=== PATIENT | male | born 1995 | race Caucasian/White ===

== ENCOUNTER 2018-11-19 07:20 | Emergency (ER) | payer MEDICAID, OTHER ==
[~2018-11-19 07:20] MED LIST: AZIT-1 PO; CLIN300C99 PO; HYDR-653 PO; KET10 PO; LOR5/325 PO; NEOM10DR44 OT
--- NOTE | 2018-11-19 07:39 | ER Report ---
History and Physical Time Seen By MD: 07:35 Hx. of Stated Complaint: STATES HE HAS HAD INTERMITTENT NUMBNESS TO ENTIRE LEFT ARM FOR THE PAST MONTH. HAS BEEN MORE FATIGUED OVER THE LAST WEEK (GARFIELD IQBAL DO) HPI/ROS CHIEF COMPLAINT: L arm weakness HISTORY OF PRESENT ILLNESS: PT here for evaluation of left arm numbness. Pt states that it started about a month ago. Pt states he woke up one morning and left arm felt numb "i thought i slept on it". States that numbness has been intermittent.Pt denies any trauma or neck pain. Pt states that today is the first day that it has not gone away. PT also has noticed that his arm has been progressively getting weaker. PT states that when he goes to grasp something "like a mug" I realize I am not holding it as well as the right hand. No leg weakness. no headache. no chest pain or sob. Pt never had this happen before. REVIEW OF SYSTEMS: Constitutional: No fever, no chills. Eyes: No discharge. ENT: No sore throat. Cardiovascular: No chest pain, no palpitations. Respiratory: No cough, no shortness of breath. Gastrointestinal: No abdominal pain, no vomiting. Genitourinary: No hematuria. Musculoskeletal: No back pain. No neck pain, + left arm numbness and weakness Skin: No rashes. Neurological: No headache, Left arm numbness (GARFIELD IQBAL DO) Allergies: Coded Allergies: Penicillins (Unverified Allergy, Unknown, 11/19/18) amoxicillin (Verified Allergy, Unknown, 11/19/18) codeine (Unverified Allergy, Unknown, 11/19/18) morphine (Verified Allergy, Unknown, 11/19/18) Home Meds Active Scripts Methocarbamol (ROBAXIN-750) 750 Mg Tablet, 1500 MG PO QID for Muscle Relaxant, #30 TAB 0 Refills Prov:VINNY MENDEZ MD 11/19/18 Oxycodone/Acetaminophen (OXYCODONE/ACETAMINOPHEN 5MG/325 MG) 5 Mg/325 Mg Tab, 1 TAB PO Q4H, #12 TAB 0 Refills Prov:VINNY MENDEZ MD 11/19/18 Methylprednisolone (METHYLPREDNISOLONE) 4 Mg Tab.ds.pk, 4 MG PO DIRECTED, #21 TAB . Prov:VINNY MENDEZ MD 11/19/18 Discontinued Scripts Azithromycin (ZITHROMAX) 250 Mg Tablet, 0 PO QDAY, #6 TAB TAKE 2 TABLETS ON DAY 1 AND 1 TABLET ON DAYS 2-5 Prov:MAY FERNANDEZ DO 01/26/14 Hydrocodone Bit/Acetaminophen (NORCO 5-325 TABLET) 1 Each Tablet, 1 EACH PO Q4H PRN for PAIN, #12 0 Refills Prov:MAY FERNANDEZ DO 01/26/14 Neomy Sulf/Colist Sul/Hc/Thonz (CORTISPORIN-TC EAR SUSP) 10 Ml Drops.susp, 10 ML OT TID for ear infection, #10 0 Refills Prov:MAY FERNANDEZ DO 01/26/14 Clindamycin Hcl (CLINDAMYCIN HCL) 300 Mg Capsule, 300 MG PO Q6H, #20 CAPSULE TAKE 1 CAPSULE EVERY SIX HOURS Prov:SHERIDAN OCHOA DO 01/13/14 Hydrocodone Bit/Acetaminophen (NORCO 5-325 TABLET) 1 Each Tablet, 1 EACH PO Q6- 8H, #10 Prov:SHERIDAN OCHOA DO 01/13/14 Past Medical/Surgical History Pmhx: anxiety Pshx: appy (GARFIELD IQBAL DO) Reviewed Nurses Notes: Yes (GARFIELD IQBAL DO) Hx Smoking: No Smoking Status: Never Smoker Hx Substance Use Disorder: No Hx Alcohol Use: Yes (GARFIELD IQBAL DO) Constitutional Vital Sign - Last 24 Hours 11/19/18 11/19/18 11/19/18 11/19/18 07:30 07:30 08:00 08:30 Temp 97.7 Pulse 75 88 58 56 Resp 20 9 21 13 B/P (MAP) 129/82 134/87 (103) 117/72 (87) 123/71 (88) Pulse Ox 95 97 93 96 O2 Delivery Room Air 11/19/18 11/19/18 09:00 11:00 Pulse 62 60 Resp 15 B/P (MAP) 124/67 (86) 115/74 (88) Pulse Ox 96 93 (VINNY MENDEZ MD) Physical Exam General Appearance: The patient is alert, has no immediate need for airway protection and no signs of toxicity. Eyes: Pupils equal and round no pallor or injection, EOMI ENT: no pharyngeal erythema or exudates, Mucous membranes are moist, TM are nl b/l Respiratory: There are no retractions, lungs are clear to auscultation. Cardiovascular: Regular rate and rhythm. pulses are equal and symmetrical Gastrointestinal: Abdomen is soft and non tender, no masses, bowel sounds normal, no guarding, no rigidity or rebound Neurological: Cranial nerves II-XII grossly intact, no sensory, Lower extremiti ty muscle strength 5/5, right upper extremity strength 5/5, left upper extremity 4/5 in tricep and bicep as well as grasp, no pronator drift, no dysmetria Skin: Warm and dry, no rashes. Musculoskeletal: Neck is supple non tender, no vertebral tenderness, Extremities are nontender, nonswollen and have full range of motion. DIFFERENTIAL DIAGNOSIS: After history and physical exam differential diagnosis was considered for weakness secondary to cervical radiculopathy (herniated disc, spinal stenosis), cva, electrolyte abnl (LAURORA,GARFIELD V DO) Medical Decision Making Data Points Result Diagram: 11/19/18 0736 11/19/18 0736 Laboratory Hematology Test 11/19/18 07:36 White Blood Count 6.2 k/uL (4.5-11.0) Red Blood Count 5.41 M/uL (4.00-5.60) Hemoglobin 15.4 g/dL (14.0-18.0) Hematocrit 44.5 % (42.0-52.0) Mean Corpuscular Volume 82.3 fL (80.0-96.0) Mean Corpuscular Hemoglobin 28.6 pg (26.0-33.0) Mean Corpuscular Hemoglobin Concent 34.7 g/dL (32.0-36.0) Red Cell Distribution Width 13.2 % (11.5-14.5) Platelet Count 250 K/uL (150-450) Mean Platelet Volume 9.8 fL (7.2-11.1) Neutrophils (%) (Auto) 46.9 % (39.4-72.5) Lymphocytes (%) (Auto) 44.3 % (17.6-49.6) Monocytes (%) (Auto) 6.8 % (4.1-12.4) Eosinophils (%) (Auto) 1.3 % (0.4-6.7) Basophils (%) (Auto) 0.7 % (0.3-1.4) Nucleated RBC Relative Count (auto) 0.0 /100WBC Neutrophils # (Auto) 2.9 K/uL (2.0-7.4) Lymphocytes # (Auto) 2.7 K/uL (1.3-3.6) Monocytes # (Auto) 0.4 K/uL (0.3-1.0) Eosinophils # (Auto) 0.1 K/uL (0.0-0.5) Basophils # (Auto) 0.0 K/uL (0.0-0.1) Nucleated RBC Absolute Count (auto) 0.00 K/uL Chemistry Test 11/19/18 07:36 Sodium Level 137 mmol/L (137-145) Potassium Level 4.1 mmol/L (3.5-5.0) Chloride Level 106 mmol/L (98-107) Carbon Dioxide Level 22 mmol/L (22-30) Blood Urea Nitrogen 15 mg/dl (9-21) Creatinine 1.00 mg/dl (0.66-1.25) Glomerular Filtration Rate Calc > 60.0 Random Glucose 104 mg/dl (75-110) Calcium Level 9.0 mg/dl (8.4-10.2) Total Bilirubin 1.7 mg/dl (0.2-1.3) Aspartate Amino Transf (AST/SGOT) 38 U/L (0-35) Alanine Aminotransferase (ALT/SGPT) 57 U/L (0-56) Alkaline Phosphatase 70 U/L (0-126) Troponin I < 0.012 ng/ml Total Protein 7.3 g/dl (6.3-8.2) Albumin 4.2 g/dl (3.5-5.0) Coagulation Test 11/19/18 07:36 Prothrombin Time 13.0 seconds (12.0-14.4) Prothromb Time International Ratio 0.98 Activated Partial Thromboplast Time 33 seconds (23-35) (VINNY MENDEZ MD) EKG/Imaging EKG Interpretation Nsr @ 66 with sinus arrhythmia (GARFIELD IQBAL DO) Imaging FACILITY: [facility] [place] PATIENT NAME: Vipul Arboleda : 1995 MR: [id number] V: [id number] EXAM DATE: ORDERING PHYSICIAN: GARFIELD IQBAL TECHNOLOGIST: Location: [facility] Patient: Vipul Arboleda : 1995 Visit/Account:[id number] Date of Sevice: 11/19/2018 EXAMINATION: CT Cervical spine without intravenous contrast HISTORY: Left arm numbness. COMPARISON: None available. TECHNIQUE: Noncontrast axial CT of the cervical spine with sagittal and coronal reformats. One of the following dose optimization techniques was utilized in the performance of this exam: Automated exposure control; adjustment of the mA and/or kV according to the patient's size; or use of an iterative reconstruction technique. Specific details can be referenced in the facility's radiology CT exam operational policy. FINDINGS: Alignment: Straightening and slight reversal of the normal lordosis. Minimal convex rightward curvature. Cranio-cervical junction: Negative. Vertebral bodies: Negative. Posterior elements: Negative. Hardware: None. Disc Spaces: Negative. Soft tissues: Negative. Visualized upper chest: Negative. IMPRESSION: 1. No acute osseous abnormality of the cervical spine. 2. Straightening and slight reversal of the normal lordosis and minimal convex rightward curvature may be positional or related to muscle spasm. No significant degenerative changes. Report Dictated By: Sidney Schaefer MD at 11/19/2018 8:18 AM Report E-Signed By: Sidney Schaefer MD at 11/19/2018 8:22 AM WSN:[email or web address] FACILITY: [facility] [place] PATIENT NAME: Vipul Arboleda : 1995 MR: [id number] V: [id number] EXAM DATE: ORDERING PHYSICIAN: GARFIELD IQBAL TECHNOLOGIST: Location: [facility] Patient: Vipul Arboleda : 1995 Visit/Account:[id number] Date of Sevice: 11/19/2018 CT BRAIN NO CONTRAST EXAMINATION: CT head/brain without contrast HISTORY: Left arm numbness. TECHNIQUE: Contiguous axial images were obtained from the skull base to the vertex without intravenous contrast. One of the following dose optimization techniques was utilized in the performance of this exam: Automated exposure control; adjustment of the mA and/or kV according to the patient's size; or use of an iterative reconstruction technique. Specific details can be referenced in the facility's radiology CT exam operational policy. COMPARISON STUDIES: None FINDINGS: Ventricles/sulci/fissures: Midline in position and normal in configuration. Masses/hemorrhage/midline shift: Negative White matter: Well-maintained. No white matter edema. Da Silva-white differentiation: . No abnormal hypo or hyperdense lesions seen within the cortical mantle Extra-axial spaces: No subdural or epidural fluid collections. No subarachnoid blood Dural venous sinuses/arterial structures: Negative Skull base/calvarium: No calvarial or skull base abnormalities. Visualized mastoid air cells/paranasal sinuses: Mastoid air cells are well-maintained well-aerated. No sinus disease. IMPRESSION: Negative CT scan of the head. Report Dictated By: Calixto Owen MD at 11/19/2018 8:16 AM Report E-Signed By: Calixto Owen MD at 11/19/2018 8:18 AM WSN:[id number] FACILITY: [facility] [place] PATIENT NAME: Vipul Arboleda : 1995 MR: [id number] V: [id number] EXAM DATE: ORDERING PHYSICIAN: VINNY MENDEZ TECHNOLOGIST: Location: [facility] Patient: Vipul Arboleda : 1995 Visit/Account:[id number] Date of Sevice: 11/19/2018 MR SPINE CERVICAL W/O CON COMPARISON: None Additional pertinent history: Numbness extending into the left arm. Technique: Multiplanar multisequence cervical spine MRI was performed without gadolinium enhancement. FINDINGS: Vertebral body height and alignment: Negative Vertebral marrow signal: Negative Vertebral bodies: Negative Cervical spinal cord signal, craniocervical junction and visualized posterior fossa: Negative Surrounding soft tissues: Nonpathologically enlarged lymph nodes within the neck. These are presumably reactive. Inspection of the disc spaces reveal the following: C1-C2: Negative C2-C3: Negative C3-C4: Negative C4-C5: Negative C5-C6: Negative C6-C7: Negative C7-T1: Negative Impression: Normal cervical spine MRI without contrast. Report Dictated By: Benjamin Bae MD at 11/19/2018 11:11 AM Report E-Signed By: Benjamin Bae MD at 11/19/2018 11:13 AM WSN:[id number] (VINNY MENDEZ MD) ED Course/Re-evaluation ED Course check labs and imaging of head and c-spine 11/19/2018 8:20:19 am signed out to Dr. Mendez (GARFIELD IQBAL DO) ED Course 11/19/2018 8:43:37 am patient with persistent left upper extremity weakness that seems both dermatomal and distribution C4-C6. CT scan of brain unremarkabl e, CT C-spine; no significant arthritis noted however straightening of loss of the cervical lordosis noted plan at this time will be MRI of the C-spine Decision to Disposition Date: Nov 19, 2018 Decision to Disposition Time: 11:30 Turned Over accepted care at 0836 (VINNY MENDEZ MD) Depart Departure Latest Vital Signs Vital Signs Date Time Temp Pulse Resp B/P (MAP) Pulse Ox O2 Delivery O2 Flow Rate FiO2 11/19/18 11:00 60 115/74 (88) 93 11/19/18 09:00 15 11/19/18 07:30 97.7 Room Air (VINNY MENDEZ MD) Impression: Primary Impression: Muscle pain Additional Impression: Left arm weakness Condition: Condition Unchanged Disposition: HOME OR SELF-CARE Referrals: GRAY BERNARDO MD call to schedule the next available appointment for evaluation of your upper extremity weakness New Scripts Methocarbamol (ROBAXIN-750) 750 Mg Tablet 1500 MG PO QID for Muscle Relaxant, #30 TAB 0 Refills Prov: VINNY MENDEZ MD 11/19/18 Oxycodone/Acetaminophen (OXYCODONE/ACETAMINOPHEN 5MG/325 MG) 5 Mg/325 Mg Tab 1 TAB PO Q4H, #12 TAB 0 Refills Prov: VINNY MENDEZ MD 11/19/18 Methylprednisolone (METHYLPREDNISOLONE) 4 Mg Tab.ds.pk 4 MG PO DIRECTED, #21 TAB . Prov: VINNY MENDEZ MD 11/19/18 Departure Forms: ER Transition Record, Medications Reconciliation, Off Work/School Form, School or Work Release?: Work Number of days to be released: 2 Patient Portal Information Patient Instructions: Arm Pain (ED) Problem Qualifiers GARFIELD IQBAL DO Nov 19, 2018 07:39 VINNY MENDEZ MD Nov 19, 2018 08:47
[2018-11-19 07:58] LABS: PLATELET COUNT, AUTOMATED 250 K/uL (150-450)
[2018-11-19 08:09] LABS: INR 0.98
--- NOTE | 2018-11-19 08:26 | RADIOLOGY IMAGING REPORT ---
FACILITY: [facility] PATIENT NAME: Vipul Arboleda : 1995 MR: [id number] V: [id number] EXAM DATE: ORDERING PHYSICIAN: GARFIELD IQBAL TECHNOLOGIST: Location: [facility] [place] Patient: Vipul Arboleda : 1995 Visit/Account:[id number] Date of Sevice: 11/19/2018 CT BRAIN NO CONTRAST EXAMINATION: CT head/brain without contrast HISTORY: Left arm numbness. TECHNIQUE: Contiguous axial images were obtained from the skull base to the vertex without intravenou s contrast. One of the following dose optimization techniques was utilized in the performance of this exam: Autom ated exposure control; adjustment of the mA and/or kV according to the patient's size; or use of an i terative reconstruction technique. Specific details can be referenced in the facility's radiology C T exam operational policy. COMPARISON STUDIES: None FINDINGS: Ventricles/sulci/fissures: Midline in position and normal in configuration. Masses/hemorrhage/midline shift: Negative White matter: Well-maintained. No white matter edema. Da Silva-white differentiation: . No abnormal hypo or hyperdense lesions seen within the cortical mantle Extra-axial spaces: No subdural or epidural fluid collections. No subarachnoid blood Dural venous sinuses/arterial structures: Negative Skull base/calvarium: No calvarial or skull base abnormalities. Visualized mastoid air cells/paranasal sinuses: Mastoid air cells are well-maintained well-aerated. N o sinus disease. IMPRESSION: Negative CT scan of the head. Report Dictated By: Calixto Owen MD at 11/19/2018 8:16 AM Report E-Signed By: Calixto Owen MD at 11/19/2018 8:18 AM WSN:[id number]
--- NOTE | 2018-11-19 08:27 | EKG ---
FACILITY: [facility] PATIENT NAME: JOSÉ MANUEL STEPHENSON : [id number] MR: [id number] V: [id number] EXAM DATE: ORDERING PHYSICIAN: GARFIELD IQBAL TECHNOLOGIST: FELIX Test Reason : ARM NUMBNESS, SOB Blood Pressure : / mmHG Vent. Rate : 066 BPM Atrial Rate : 066 BPM P-R Int : 136 ms QRS Dur : 094 ms QT Int : 390 ms P-R-T Axes : 026 011 017 degrees QTc Int : 408 ms Normal sinus rhythm with sinus arrhythmia Normal ECG Confirmed by RUSTY QUILES ([id number]) on 11/19/2018 9:59:58 AM Referred By: FARIDA Confirmed By:RUSTY QUILES
--- NOTE | 2018-11-19 08:28 | RADIOLOGY IMAGING REPORT ---
[place]ACILITY: [facility] [place] PATIENT NAME: Vipul Arboleda : 1995 MR: [id number] V: [id number] EXAM DATE: ORDERING PHYSICIAN: GARFIELD IQBAL TECHNOLOGIST: Location: [facility] [place] Patient: Vipul Arboleda : 1995 Visit/Account:[id number] Date of Sevice: 11/19/2018 EXAMINATION: CT Cervical spine without intravenous contrast HISTORY: Left arm numbness. COMPARISON: None available. TECHNIQUE: Noncontrast axial CT of the cervical spine with sagittal and coronal reformats. One of the following dose optimization techniques was utilized in the performance of this exam: Autom ated exposure control; adjustment of the mA and/or kV according to the patient's size; or use of an i terative reconstruction technique. Specific details can be referenced in the facility's radiology C T exam operational policy. FINDINGS: Alignment: Straightening and slight reversal of the normal lordosis. Minimal convex rightward curvatu re. Cranio-cervical junction: Negative. Vertebral bodies: Negative. Posterior elements: Negative. Hardware: None. Disc Spaces: Negative. Soft tissues: Negative. Visualized upper chest: Negative. IMPRESSION: 1. No acute osseous abnormality of the cervical spine. 2. Straightening and slight reversal of the normal lordosis and minimal convex rightward curvature ma y be positional or related to muscle spasm. No significant degenerative changes. Report Dictated By: Sidney Schaefer MD at 11/19/2018 8:18 AM Report E-Signed By: Sidney Schaefer MD at 11/19/2018 8:22 AM WSN:[email or web address]
[2018-11-19 11:00] VITALS: BP 115/74
--- NOTE | 2018-11-19 11:22 | RADIOLOGY IMAGING REPORT ---
FACILITY: [facility] PATIENT NAME: Vipul Arboleda : 1995 MR: [id number] V: [id number] EXAM DATE: ORDERING PHYSICIAN: VINNY INTERIANO TECHNOLOGIST: Location: [facility] [place] Patient: Vipul Arboleda : 1995 Visit/Account:[id number] Date of Sevice: 11/19/2018 MR SPINE CERVICAL W/O CON COMPARISON: None Additional pertinent history: Numbness extending into the left arm. Technique: Multiplanar multisequence cervical spine MRI was performed without gadolinium enhancement. FINDINGS: Vertebral body height and alignment: Negative Vertebral marrow signal: Negative Vertebral bodies: Negative Cervical spinal cord signal, craniocervical junction and visualized posterior fossa: Negative Surrounding soft tissues: Nonpathologically enlarged lymph nodes within the neck. These are presumab ly reactive. Inspection of the disc spaces reveal the following: C1-C2: Negative C2-C3: Negative C3-C4: Negative C4-C5: Negative C5-C6: Negative C6-C7: Negative C7-T1: Negative Impression: Normal cervical spine MRI without contrast. Report Dictated By: Benjamin Bae MD at 11/19/2018 11:11 AM Report E-Signed By: Benjamin Bae MD at 11/19/2018 11:13 AM WSN:[id number]
[2018-11-19] MEDS ORDERED: PER PO (11:38)
[2018-11-19] MEDS ORDERED: METH4TAB66 PO (11:38)
[2018-11-19] MEDS ORDERED: METH-543 PO (11:38)
== END 2018-11-19 11:45 | disposition home or self-care (01) ==
LOC: ER 07:43
DX: R53.1 Weakness (principal); M79.18 Myalgia, other site
CPT/HCPCS: 70450; 72125; 72141; 82040; 82247; 82310; 82374; 82435; 82565; 82947; 84075; 84132; 84155; 84295; 84450; 84460; 84484; 84520; 85025; 85610; 85730; 93005; 99284